=== PATIENT | female | born 1970 | race African-American/Black ===

== ENCOUNTER 2019-12-26 11:37 | Inpatient (IN) ==
[2019-12-26] MEDS ORDERED: GLUCAGON 1 MG VIAL IM PRN ×3 (17:27→19:34)
[2019-12-26] MEDS ORDERED: DEXTROSE 50% 25 GM/50 ML VIAL IV PRN ×3 (17:27→19:34)
[2019-12-26 20:19] LABS: Basophils % 0.2 % (0.0-0.8); Eosinophils # 0.2 10*3/uL (0.0-0.87); Eosinophils % 1.7 % (0.00-10.9); Hematocrit 35.2 VOL% (35.7-47.0); Hemoglobin 10.9 GM/DL (12.0-16.0); Immature Granulocytes % 0.3 %; Immature Granulocytes Absolute 0.03 #; Lymphocytes # 1.1 10*3/uL (1.4-4.0); Lymphocytes % 10.6 % (21.3-54.2); Mean Platelet Volume 10.1 FL (9.6-12.0); Monocytes % 6.1 % (1.7-12.7); Neutrophils % 81.1 % (38.7-73.9); Platelet Count 227 T/CUMM (130-400); Red Blood Count 3.63 MC/CUMM (3.8-5.5); Red Cell Distribution Width 17.7 % (9.3-17.3); White Blood Count 10.2 T/CUMM (4-12)
[2019-12-26 20:48] LABS: Albumin 3.1 G/DL (3.4-5.0); Bilirubin,Total 1.7 MG/DL (0.2-1.0); Calcium 9.2 MG/DL (8.5-10.1); Osmolality,Calculated 279.1 MOS/KG (273-304); Total Protein 8.3 G/DL (6.4-8.3)
[2019-12-26] MEDS: ONDANSETRON 4 MG/2 ML VIAL IV PRN (21:25)
[2019-12-26] MEDS: MORPHINE 4 MG/1 ML VIAL IV PRN (21:25)
[2019-12-26] MEDS: GABAPENTIN 100 MG CAPSULE PO SCH (21:33)
[2019-12-26] MEDS: INSULIN GLARGINE 100 UNIT/ML SUBCUT SCH (21:33)
[2019-12-26] MEDS: carvediloL 25 MG TABLET PO SCH (21:33)
[2019-12-26] MEDS: INSULIN LISPRO 100 UNIT/ML SUBCUT SCH (21:34)
[2019-12-27] MEDS: MORPHINE 4 MG/1 ML VIAL IV PRN ×4 (01:42→21:52)
[2019-12-27 06:54] LABS: Basophils % 0.2 % (0.0-0.8); Eosinophils # 0.2 10*3/uL (0.0-0.87); Eosinophils % 1.9 % (0.00-10.9); Hematocrit 33.3 VOL% (35.7-47.0); Hemoglobin 10.2 GM/DL (12.0-16.0); Immature Granulocytes % 0.2 %; Immature Granulocytes Absolute 0.02 #; Lymphocytes # 1.1 10*3/uL (1.4-4.0); Lymphocytes % 12.9 % (21.3-54.2); Mean Corpuscular HGB Conc 30.6 GM/DL (32-36); Mean Corpuscular Volume 99.1 FL (87-102); Mean Platelet Volume 10.7 FL (9.6-12.0); Neutrophils % 76.8 % (38.7-73.9); Platelet Count 239 T/CUMM (130-400); Red Blood Count 3.36 MC/CUMM (3.8-5.5); Red Cell Distribution Width 17.8 % (9.3-17.3); White Blood Count 8.5 T/CUMM (4-12)
[2019-12-27 07:01] LABS: Bilirubin,Total 0.6 MG/DL (0.2-1.0); Calcium 8.8 MG/DL (8.5-10.1); Osmolality,Calculated 277.1 MOS/KG (273-304); Total Protein 7.8 G/DL (6.4-8.3)
[2019-12-27] MEDS ORDERED: VANCOMYCIN INJ 1,000 MG in SODIUM CHLORIDE 0.9% 250 ML IV SCH (08:30)
[2019-12-27] MEDS: PANTOPRAZOLE 40 MG TABLET PO SCH (09:00)
[2019-12-27] MEDS: carvediloL 25 MG TABLET PO SCH ×2 (09:00→21:52)
[2019-12-27] MEDS: GABAPENTIN 100 MG CAPSULE PO SCH ×2 (09:00→21:52)
[2019-12-27] MEDS: INSULIN LISPRO 100 UNIT/ML SUBCUT SCH ×4 (09:25→21:52)
[2019-12-27] MEDS: ONDANSETRON 4 MG/2 ML VIAL IV PRN (10:14)
[2019-12-27] MEDS ORDERED: DOCUSATE SODIUM 100 MG CAPSULE PO PRN (10:41)
[2019-12-27] MEDS ORDERED: FERRIC CITRATE 210 MG PO SCH (15:00)
[2019-12-27] MEDS ORDERED: HEPARIN LOCK FLUSH 500 UNIT/5 ML SYRINGE IV PRN (16:23)
[2019-12-27] MEDS: PROMETHAZINE INJ 25 MG in SODIUM CHLORIDE 0.9% 50 ML IV PRN (18:39)
[2019-12-27] MEDS: INSULIN GLARGINE 100 UNIT/ML SUBCUT SCH (21:53)
[2019-12-27] MEDS: HEPARIN LOCK FLUSH 500 UNIT/5 ML SYRINGE IV SCH (21:54)
[2019-12-28] MEDS: MORPHINE 4 MG/1 ML VIAL IV PRN ×3 (05:44→23:35)
[2019-12-28] MEDS ORDERED: VANCOMYCIN INJ 1,750 MG in SODIUM CHLORIDE 0.9% 500 ML IV ONE (06:00)
[2019-12-28 08:12] LABS: Basophils % 0.4 % (0.0-0.8); Eosinophils # 0.2 10*3/uL (0.0-0.87); Eosinophils % 2.1 % (0.00-10.9); Hematocrit 35.7 VOL% (35.7-47.0); Hemoglobin 10.7 GM/DL (12.0-16.0); Immature Granulocytes % 0.4 %; Immature Granulocytes Absolute 0.03 #; Lymphocytes # 1.4 10*3/uL (1.4-4.0); Lymphocytes % 17.9 % (21.3-54.2); Mean Platelet Volume 10.4 FL (9.6-12.0); Monocytes % 8.8 % (1.7-12.7); Neutrophils % 70.4 % (38.7-73.9); Platelet Count 261 T/CUMM (130-400); Red Blood Count 3.57 MC/CUMM (3.8-5.5); Red Cell Distribution Width 17.4 % (9.3-17.3); White Blood Count 7.9 T/CUMM (4-12)
[2019-12-28 08:30] LABS: Albumin 3.2 G/DL (3.4-5.0); Bilirubin,Total 0.5 MG/DL (0.2-1.0); Calcium 9.2 MG/DL (8.5-10.1); Osmolality,Calculated 283.1 MOS/KG (273-304); Total Protein 8.1 G/DL (6.4-8.3)
[2019-12-28] MEDS ORDERED: CALCIUM GLUCONATE 2,000 MG in SODIUM CHLORIDE 0.9% 100 ML IV ONE (08:42)
[2019-12-28] MEDS ORDERED: DEXTROSE 50% 25 GM/50 ML VIAL IV ONE ×2 (08:43→13:43)
[2019-12-28] MEDS ORDERED: INSULIN REGULAR 100 UNIT/ML IV ONE (08:44)
[2019-12-28] MEDS ORDERED: LIDOCAINE 1%/EPI INJ 20 ML VIAL ONE ×2 (09:09→12:05)
[2019-12-28] MEDS ORDERED: BUPIVACAINE MPF 0.25% 30 ML VIAL ONE ×2 (09:09→12:05)
[2019-12-28] MEDS ORDERED: HEPARIN 5,000 UNIT/1 ML VIAL ONE ×2 (09:09→12:05)
[2019-12-28] MEDS: carvediloL 25 MG TABLET PO SCH ×2 (09:11→20:50)
[2019-12-28] MEDS: SODIUM CHLORIDE 0.9% 250 ML IV SCH ×2 (10:05→12:15)
[2019-12-28] MEDS: INSULIN LISPRO 100 UNIT/ML SUBCUT SCH ×4 (10:51→20:51)
[2019-12-28] MEDS ORDERED: LIDOCAINE 2% 5 ML VIAL ONE (12:49)
[2019-12-28] MEDS ORDERED: propofoL 200 MG/20 ML VIAL IV ONE (12:49)
[2019-12-28] MEDS ORDERED: fentaNYL 100 MCG/2 ML VIAL ONE (12:49)
[2019-12-28] MEDS ORDERED: SEVOFLURANE 1 UNIT/15 MINUTE INH ONE (12:50)
[2019-12-28] MEDS ORDERED: MIDAZOLAM 2 MG/2 ML VIAL ONE (12:50)
[2019-12-28] MEDS ORDERED: PHENYLEPHRINE 1 MG/10 ML SYRINGE IV ONE (12:50)
[2019-12-28] MEDS ORDERED: ePHEDrine 50 MG/ML AMP ONE (12:50)
[2019-12-28] MEDS: HEPARIN LOCK FLUSH 500 UNIT/5 ML SYRINGE IV SCH ×2 (14:03→22:16)
[2019-12-28] MEDS: OMEGA 3 ACID ETHYL ESTERS 1 GM CAPSULE PO SCH (14:03)
[2019-12-28] MEDS: PANTOPRAZOLE 40 MG TABLET PO SCH (14:04)
[2019-12-28] MEDS: GABAPENTIN 100 MG CAPSULE PO SCH ×2 (14:04→20:50)
[2019-12-28] MEDS ORDERED: DEXTROSE 50% 25 GM/50 ML VIAL IV PRN (14:07)
[2019-12-28] MEDS ORDERED: GLUCAGON 1 MG VIAL IM PRN (14:07)
[2019-12-28] MEDS ORDERED: VANCOMYCIN INJ 2,250 MG in SODIUM CHLORIDE 0.9% 500 ML IV ONE (18:00)
[2019-12-28] MEDS ORDERED: HEPARIN 10,000 UNIT/10 ML VIAL IV SCH (18:30)
[2019-12-28] MEDS: INSULIN GLARGINE 100 UNIT/ML SUBCUT SCH (20:52)
[2019-12-28] MEDS: PROMETHAZINE INJ 25 MG in SODIUM CHLORIDE 0.9% 50 ML IV PRN (21:56)
[2019-12-29] MEDS ORDERED: CALCIUM CARBONATE CHEW 500 MG TABLET PO ONE ×2 (00:11→22:28)
[2019-12-29] MEDS: MORPHINE 4 MG/1 ML VIAL IV PRN ×4 (03:55→22:50)
[2019-12-29 06:08] LABS: Basophils % 0.2 % (0.0-0.8); Eosinophils # 0.3 10*3/uL (0.0-0.87); Hematocrit 33.9 VOL% (35.7-47.0); Hemoglobin 10.2 GM/DL (12.0-16.0); Immature Granulocytes % 0.4 %; Immature Granulocytes Absolute 0.03 #; Lymphocytes # 1.5 10*3/uL (1.4-4.0); Lymphocytes % 17.5 % (21.3-54.2); Mean Corpuscular HGB Conc 30.1 GM/DL (32-36); Mean Corpuscular Volume 99.7 FL (87-102); Mean Platelet Volume 10.6 FL (9.6-12.0); Neutrophils % 71.9 % (38.7-73.9); Platelet Count 272 T/CUMM (130-400); Red Cell Distribution Width 17.2 % (9.3-17.3); White Blood Count 8.4 T/CUMM (4-12)
[2019-12-29 06:24] LABS: Bilirubin,Total 0.6 MG/DL (0.2-1.0); Calcium 9.2 MG/DL (8.5-10.1); Osmolality,Calculated 281.1 MOS/KG (273-304); Total Protein 7.8 G/DL (6.4-8.3)
[2019-12-29] MEDS ORDERED: VANCOMYCIN INJ 750 MG in SODIUM CHLORIDE 0.9% 250 ML IV ONE (09:00)
[2019-12-29] MEDS: INSULIN LISPRO 100 UNIT/ML SUBCUT SCH ×4 (09:16→21:46)
[2019-12-29] MEDS: HEPARIN LOCK FLUSH 500 UNIT/5 ML SYRINGE IV SCH ×2 (09:17→21:38)
[2019-12-29] MEDS: ONDANSETRON 4 MG/2 ML VIAL IV PRN (11:12)
[2019-12-29] MEDS: PANTOPRAZOLE 40 MG TABLET PO SCH (11:17)
[2019-12-29] MEDS: GABAPENTIN 100 MG CAPSULE PO SCH ×2 (11:17→21:38)
[2019-12-29] MEDS: OMEGA 3 ACID ETHYL ESTERS 1 GM CAPSULE PO SCH (11:17)
[2019-12-29] MEDS: carvediloL 25 MG TABLET PO SCH ×2 (11:17→21:38)
[2019-12-29] MEDS ORDERED: MORPHINE 4 MG/1 ML VIAL IV ONE (12:55)
[2019-12-29] MEDS ORDERED: ONDANSETRON 4 MG/2 ML VIAL IV ONE (12:55)
[2019-12-29] MEDS: INSULIN GLARGINE 100 UNIT/ML SUBCUT SCH (21:47)
[2019-12-30] MEDS: MORPHINE 4 MG/1 ML VIAL IV PRN ×5 (02:49→21:16)
[2019-12-30 06:04] LABS: Basophils % 0.6 % (0.0-0.8); Eosinophils # 0.3 10*3/uL (0.0-0.87); Eosinophils % 4.1 % (0.00-10.9); Hematocrit 32.4 VOL% (35.7-47.0); Hemoglobin 9.8 GM/DL (12.0-16.0); Immature Granulocytes % 0.6 %; Immature Granulocytes Absolute 0.04 #; Lymphocytes # 1.5 10*3/uL (1.4-4.0); Lymphocytes % 21.3 % (21.3-54.2); Mean Corpuscular HGB Conc 30.2 GM/DL (32-36); Mean Corpuscular Volume 99.4 FL (87-102); Mean Platelet Volume 10.4 FL (9.6-12.0); Monocytes % 9.7 % (1.7-12.7); Neutrophils % 63.7 % (38.7-73.9); Platelet Count 297 T/CUMM (130-400); Red Blood Count 3.26 MC/CUMM (3.8-5.5); Red Cell Distribution Width 16.9 % (9.3-17.3); White Blood Count 6.8 T/CUMM (4-12)
[2019-12-30 06:28] LABS: Albumin 2.7 G/DL (3.4-5.0); Bilirubin,Total 0.6 MG/DL (0.2-1.0); Calcium 8.9 MG/DL (8.5-10.1); Osmolality,Calculated 286.1 MOS/KG (273-304); Total Protein 7.7 G/DL (6.4-8.3)
[2019-12-30] MEDS ORDERED: ERGOCALCIFEROL 50,000 UNIT CAPSULE PO SCH (09:00)
[2019-12-30] MEDS: INSULIN LISPRO 100 UNIT/ML SUBCUT SCH ×4 (09:21→21:16)
[2019-12-30] MEDS ORDERED: CALCIUM CARBONATE CHEW 500 MG TABLET PO PRN (09:41)
[2019-12-30] MEDS: GABAPENTIN 100 MG CAPSULE PO SCH ×2 (12:56→20:26)
[2019-12-30] MEDS: PANTOPRAZOLE 40 MG TABLET PO SCH (12:57)
[2019-12-30] MEDS: carvediloL 25 MG TABLET PO SCH ×2 (12:57→20:26)
[2019-12-30] MEDS: OMEGA 3 ACID ETHYL ESTERS 1 GM CAPSULE PO SCH (12:57)
[2019-12-30] MEDS: ONDANSETRON 4 MG/2 ML VIAL IV PRN ×3 (13:00→21:17)
[2019-12-30] MEDS ORDERED: MORPHINE 4 MG/1 ML VIAL IV STA (13:52)
[2019-12-30] MEDS: HEPARIN LOCK FLUSH 500 UNIT/5 ML SYRINGE IV SCH ×2 (14:05→20:25)
[2019-12-30] MEDS ORDERED: VANCOMYCIN INJ 750 MG in SODIUM CHLORIDE 0.9% 250 ML IV ONE (17:00)
[2019-12-30] MEDS ORDERED: VANCOMYCIN INJ 750 MG in SODIUM CHLORIDE 0.9% 250 ML IV PRN (18:00)
[2019-12-30] MEDS: INSULIN GLARGINE 100 UNIT/ML SUBCUT SCH (20:25)
[2019-12-31] MEDS: MORPHINE 4 MG/1 ML VIAL IV PRN ×3 (00:53→08:17)
[2019-12-31 06:14] LABS: Basophils % 0.4 % (0.0-0.8); Eosinophils # 0.3 10*3/uL (0.0-0.87); Hemoglobin 10.2 GM/DL (12.0-16.0); Immature Granulocytes % 0.4 %; Immature Granulocytes Absolute 0.03 #; Lymphocytes # 1.4 10*3/uL (1.4-4.0); Lymphocytes % 20.4 % (21.3-54.2); Mean Corpuscular Volume 100.3 FL (87-102); Mean Platelet Volume 10.2 FL (9.6-12.0); Neutrophils % 67.8 % (38.7-73.9); Platelet Count 294 T/CUMM (130-400); Red Blood Count 3.39 MC/CUMM (3.8-5.5); Red Cell Distribution Width 16.9 % (9.3-17.3); White Blood Count 6.8 T/CUMM (4-12)
[2019-12-31] MEDS: INSULIN LISPRO 100 UNIT/ML SUBCUT SCH (06:35)
[2019-12-31 06:39] LABS: Albumin 2.6 G/DL (3.4-5.0); Bilirubin,Total 0.8 MG/DL (0.2-1.0); Calcium 9.2 MG/DL (8.5-10.1); Osmolality,Calculated 282.2 MOS/KG (273-304); Total Protein 7.7 G/DL (6.4-8.3)
[2019-12-31] MEDS ORDERED: SODIUM POLYSTYRENE SULFATE 15 GM/60 ML BOTTLE PO ONE (07:50)
[2019-12-31] MEDS: ONDANSETRON 4 MG/2 ML VIAL IV PRN (08:18)
[2019-12-31] MEDS: HEPARIN LOCK FLUSH 500 UNIT/5 ML SYRINGE IV SCH (08:20)
[2019-12-31] MEDS: GABAPENTIN 100 MG CAPSULE PO SCH (08:29)
[2019-12-31] MEDS: OMEGA 3 ACID ETHYL ESTERS 1 GM CAPSULE PO SCH (08:29)
[2019-12-31] MEDS: PANTOPRAZOLE 40 MG TABLET PO SCH (08:29)
[2019-12-31] MEDS: carvediloL 25 MG TABLET PO SCH (08:29)
[2019-12-31 08:40] VITALS: BP 123/62
== END 2019-12-31 10:34 | disposition home health service (06) | DRG 252 ==
LOC: N.3E 14:50 → SUATTDRO 14:50
PROVIDERS: ADMIT Internal Medicine; ATTEND Internal Medicine
PROC: VAVDCFI (2019-12-28 10:06)

== ENCOUNTER 2020-01-19 22:13 | Inpatient (IN) ==
[2020-01-20] MEDS ORDERED: DEXTROSE 10% 250 ML BAG IV PRN (00:06)
[2020-01-20] MEDS ORDERED: GLUCAGON 1 MG VIAL IM PRN (00:06)
[2020-01-20] MEDS: CLORAZEPATE 7.5 MG TABLET PO PRN ×4 (01:50→22:54)
[2020-01-20] MEDS: metroNIDAZOLE INJ 500 MG in PREMIX 1 EACH IV SCH ×2 (01:51→06:20)
[2020-01-20] MEDS: INSULIN REGULAR 100 UNIT/ML SUBCUT SCH ×5 (02:01→21:01)
[2020-01-20] MEDS ORDERED: VANCOMYCIN INJ 750 MG in SODIUM CHLORIDE 0.9% 250 ML IV PRN (02:34)
[2020-01-20] MEDS ORDERED: GENTAMICIN INJ 200 MG in SODIUM CHLORIDE 0.9% 100 ML IV PRN (02:38)
[2020-01-20] MEDS: hydrALAZINE 20 MG/1 ML VIAL IV PRN ×2 (03:53→12:50)
[2020-01-20 07:56] LABS: Basophils % 0.1 % (0.0-0.8); Hematocrit 36.6 VOL% (35.7-47.0); Hemoglobin 11.1 GM/DL (12.0-16.0); Immature Granulocytes % 1.2 %; Immature Granulocytes Absolute 0.12 #; Lymphocytes # 0.8 10*3/uL (1.4-4.0); Mean Corpuscular HGB Conc 30.3 GM/DL (32-36); Mean Corpuscular Volume 99.2 FL (87-102); Mean Platelet Volume 9.6 FL (9.6-12.0); Monocytes % 4.9 % (1.7-12.7); Neutrophils % 85.8 % (38.7-73.9); Platelet Count 205 T/CUMM (130-400); Red Blood Count 3.69 MC/CUMM (3.8-5.5); Red Cell Distribution Width 17.2 % (9.3-17.3); White Blood Count 10.1 T/CUMM (4-12)
[2020-01-20] MEDS ORDERED: LEVOFLOXACIN INJ 500 MG in PREMIX 1 EACH IV ONE (08:00)
[2020-01-20 08:49] LABS: Bilirubin,Total 0.9 MG/DL (0.2-1.0); Calcium 9.9 MG/DL (8.5-10.1); Total Protein 9.3 G/DL (6.4-8.3)
[2020-01-20 08:50] LABS: Albumin 3.6 G/DL (3.4-5.0); Osmolality,Calculated 288.7 MOS/KG (273-304)
[2020-01-20] MEDS: GABAPENTIN 100 MG CAPSULE PO SCH ×2 (08:51→21:11)
[2020-01-20] MEDS: carvediloL 25 MG TABLET PO SCH ×2 (08:52→21:11)
[2020-01-20] MEDS: ONDANSETRON 4 MG/2 ML VIAL IV PRN ×2 (08:52→19:50)
[2020-01-20] MEDS: PANTOPRAZOLE 40 MG TABLET PO SCH (08:52)
[2020-01-20] MEDS: OMEGA 3 ACID ETHYL ESTERS 1 GM CAPSULE PO SCH (09:08)
[2020-01-20] MEDS ORDERED: GENTAMICIN INJ 100 MG in PREMIX 1 EACH IV PRN (10:13)
[2020-01-20] MEDS ORDERED: VANCOMYCIN INJ 1,000 MG in SODIUM CHLORIDE 0.9% 250 ML IV PRN (10:14)
[2020-01-20] MEDS: VANCOMYCIN 50 MG/ML 60 ML/BOTTLE PO SCH ×3 (13:03→23:45)
[2020-01-20] MEDS ORDERED: HEPARIN 10,000 UNIT/10 ML VIAL IV PRN (15:26)
[2020-01-20] MEDS: PROMETHAZINE 25 MG/1 ML VIAL IM PRN ×2 (15:30→20:13)
[2020-01-20] MEDS ORDERED: GENTAMICIN INJ 100 MG in PREMIX 1 EACH IV ONE (17:00)
[2020-01-20] MEDS ORDERED: VANCOMYCIN INJ 1,000 MG in SODIUM CHLORIDE 0.9% 250 ML IV ONE (17:00)
[2020-01-20] MEDS: ACETAMINOPHEN/CODEINE 300-30 MG TABLET PO PRN (20:09)
[2020-01-20] MEDS: INSULIN GLARGINE 100 UNIT/ML SUBCUT SCH (21:11)
[2020-01-21] MEDS ORDERED: SCOPOLAMINE 1.5 MG PATCH TRANSDERM ONE (00:11)
[2020-01-21] MEDS: VANCOMYCIN 50 MG/ML 60 ML/BOTTLE PO SCH ×3 (06:32→18:20)
[2020-01-21] MEDS: ACETAMINOPHEN/CODEINE 300-30 MG TABLET PO PRN ×2 (07:38→13:42)
[2020-01-21] MEDS: PROMETHAZINE 25 MG/1 ML VIAL IM PRN ×3 (07:38→20:24)
[2020-01-21] MEDS: carvediloL 25 MG TABLET PO SCH ×2 (08:54→22:20)
[2020-01-21] MEDS: PANTOPRAZOLE 40 MG TABLET PO SCH (08:54)
[2020-01-21] MEDS: OMEGA 3 ACID ETHYL ESTERS 1 GM CAPSULE PO SCH (08:54)
[2020-01-21] MEDS: INSULIN REGULAR 100 UNIT/ML SUBCUT SCH ×4 (08:54→22:24)
[2020-01-21] MEDS: GABAPENTIN 100 MG CAPSULE PO SCH ×2 (08:54→22:20)
[2020-01-21] MEDS: HEPARIN 5,000 UNIT/1 ML VIAL SUBCUT SCH ×2 (11:43→22:45)
[2020-01-21] MEDS: ONDANSETRON 4 MG/2 ML VIAL IV PRN ×2 (12:20→18:21)
[2020-01-21] MEDS: LACTOBACILLUS ACIDOPHILUS/BULGARICUS CHEW TABLET PO SCH ×2 (12:49→22:45)
[2020-01-21] MEDS: CLORAZEPATE 7.5 MG TABLET PO PRN (18:21)
[2020-01-21] MEDS: ACETAMINOPHEN 325 MG TABLET PO PRN (18:21)
[2020-01-21] MEDS: INSULIN GLARGINE 100 UNIT/ML SUBCUT SCH (22:21)
[2020-01-21] MEDS: SCOPOLAMINE 1.5 MG PATCH TRANSDERM SCH (22:45)
[2020-01-22] MEDS: VANCOMYCIN 50 MG/ML 60 ML/BOTTLE PO SCH ×5 (01:20→23:26)
[2020-01-22] MEDS: CLORAZEPATE 7.5 MG TABLET PO PRN ×2 (04:30→16:58)
[2020-01-22] MEDS: ACETAMINOPHEN/CODEINE 300-30 MG TABLET PO PRN ×2 (04:30→11:40)
[2020-01-22] MEDS ORDERED: LEVOFLOXACIN INJ 250 MG in PREMIX 1 EACH IV SCH (08:00)
[2020-01-22] MEDS: INSULIN REGULAR 100 UNIT/ML SUBCUT SCH ×4 (08:23→21:16)
[2020-01-22] MEDS: GABAPENTIN 100 MG CAPSULE PO SCH ×2 (09:18→21:16)
[2020-01-22] MEDS: OMEGA 3 ACID ETHYL ESTERS 1 GM CAPSULE PO SCH (09:18)
[2020-01-22] MEDS: LACTOBACILLUS ACIDOPHILUS/BULGARICUS CHEW TABLET PO SCH ×2 (09:18→21:16)
[2020-01-22] MEDS: PANTOPRAZOLE 40 MG TABLET PO SCH (09:19)
[2020-01-22] MEDS: carvediloL 25 MG TABLET PO SCH ×2 (09:19→21:16)
[2020-01-22] MEDS: PROMETHAZINE 25 MG/1 ML VIAL IM PRN ×3 (09:22→22:44)
[2020-01-22] MEDS: HEPARIN 5,000 UNIT/1 ML VIAL SUBCUT SCH ×2 (11:45→22:44)
[2020-01-22] MEDS: INSULIN GLARGINE 100 UNIT/ML SUBCUT SCH (21:16)
[2020-01-22] MEDS: ONDANSETRON 4 MG/2 ML VIAL IV PRN (21:17)
[2020-01-23] MEDS: PROMETHAZINE 25 MG/1 ML VIAL IM PRN ×3 (04:51→18:28)
[2020-01-23] MEDS: ACETAMINOPHEN/CODEINE 300-30 MG TABLET PO PRN ×2 (04:52→21:27)
[2020-01-23] MEDS: VANCOMYCIN 50 MG/ML 60 ML/BOTTLE PO SCH ×3 (06:06→18:07)
[2020-01-23] MEDS: INSULIN REGULAR 100 UNIT/ML SUBCUT SCH ×4 (07:30→21:23)
[2020-01-23] MEDS: carvediloL 25 MG TABLET PO SCH ×2 (08:06→21:22)
[2020-01-23] MEDS: ONDANSETRON 4 MG/2 ML VIAL IV PRN ×2 (08:06→16:30)
[2020-01-23] MEDS: PANTOPRAZOLE 40 MG TABLET PO SCH (08:06)
[2020-01-23] MEDS: GABAPENTIN 100 MG CAPSULE PO SCH ×2 (08:06→21:22)
[2020-01-23] MEDS: OMEGA 3 ACID ETHYL ESTERS 1 GM CAPSULE PO SCH (08:06)
[2020-01-23] MEDS: LACTOBACILLUS ACIDOPHILUS/BULGARICUS CHEW TABLET PO SCH ×2 (10:08→21:22)
[2020-01-23] MEDS: HEPARIN 5,000 UNIT/1 ML VIAL SUBCUT SCH ×2 (14:41→22:37)
[2020-01-23] MEDS ORDERED: GENTAMICIN INJ 100 MG in PREMIX 1 EACH IV ONE (17:00)
[2020-01-23] MEDS ORDERED: VANCOMYCIN INJ 1,000 MG in SODIUM CHLORIDE 0.9% 250 ML IV ONE (18:00)
[2020-01-23] MEDS: CLORAZEPATE 7.5 MG TABLET PO PRN (21:22)
[2020-01-23] MEDS: INSULIN GLARGINE 100 UNIT/ML SUBCUT SCH (21:23)
[2020-01-24] MEDS: VANCOMYCIN 50 MG/ML 60 ML/BOTTLE PO SCH ×4 (01:25→17:08)
[2020-01-24 05:43] LABS: Basophils % 0.4 % (0.0-0.8); Eosinophils # 0.5 10*3/uL (0.0-0.87); Eosinophils % 7.1 % (0.00-10.9); Hematocrit 34.3 VOL% (35.7-47.0); Hemoglobin 10.1 GM/DL (12.0-16.0); Immature Granulocytes % 0.3 %; Immature Granulocytes Absolute 0.02 #; Lymphocytes # 1.8 10*3/uL (1.4-4.0); Lymphocytes % 24.7 % (21.3-54.2); Mean Corpuscular HGB Conc 29.4 GM/DL (32-36); Mean Corpuscular Volume 100.9 FL (87-102); Mean Platelet Volume 10.2 FL (9.6-12.0); Monocytes % 9.2 % (1.7-12.7); Neutrophils % 58.3 % (38.7-73.9); Platelet Count 250 T/CUMM (130-400); Red Cell Distribution Width 16.4 % (9.3-17.3); White Blood Count 7.3 T/CUMM (4-12)
[2020-01-24 06:00] LABS: Calcium 8.3 MG/DL (8.5-10.1); Osmolality,Calculated 277.2 MOS/KG (273-304)
[2020-01-24] MEDS: INSULIN REGULAR 100 UNIT/ML SUBCUT SCH ×4 (07:51→21:22)
[2020-01-24] MEDS: SODIUM CHLORIDE 0.9% 1,000 ML IV SCH (08:07)
[2020-01-24] MEDS: SCOPOLAMINE 1.5 MG PATCH TRANSDERM SCH (08:07)
[2020-01-24] MEDS: ONDANSETRON 4 MG/2 ML VIAL IV PRN ×2 (08:08→18:55)
[2020-01-24] MEDS: carvediloL 25 MG TABLET PO SCH ×2 (08:58→21:21)
[2020-01-24] MEDS: OMEGA 3 ACID ETHYL ESTERS 1 GM CAPSULE PO SCH (08:58)
[2020-01-24] MEDS: LACTOBACILLUS ACIDOPHILUS/BULGARICUS CHEW TABLET PO SCH ×2 (08:58→21:22)
[2020-01-24] MEDS: PANTOPRAZOLE 40 MG TABLET PO SCH (08:59)
[2020-01-24] MEDS: GABAPENTIN 100 MG CAPSULE PO SCH ×2 (08:59→21:21)
[2020-01-24] MEDS: PROMETHAZINE 25 MG/1 ML VIAL IM PRN ×2 (13:16→21:24)
[2020-01-24] MEDS: ACETAMINOPHEN/CODEINE 300-30 MG TABLET PO PRN (18:37)
[2020-01-24] MEDS: INSULIN GLARGINE 100 UNIT/ML SUBCUT SCH (21:24)
[2020-01-25] MEDS: VANCOMYCIN 50 MG/ML 60 ML/BOTTLE PO SCH ×4 (00:20→18:08)
[2020-01-25] MEDS: PROMETHAZINE 25 MG/1 ML VIAL IM PRN ×2 (08:34→15:01)
[2020-01-25] MEDS: GABAPENTIN 100 MG CAPSULE PO SCH ×2 (11:06→21:27)
[2020-01-25] MEDS: OMEGA 3 ACID ETHYL ESTERS 1 GM CAPSULE PO SCH (11:06)
[2020-01-25] MEDS: PANTOPRAZOLE 40 MG TABLET PO SCH (11:06)
[2020-01-25] MEDS: INSULIN REGULAR 100 UNIT/ML SUBCUT SCH ×4 (11:07→21:43)
[2020-01-25] MEDS: carvediloL 25 MG TABLET PO SCH ×2 (11:07→21:27)
[2020-01-25] MEDS: LACTOBACILLUS ACIDOPHILUS/BULGARICUS CHEW TABLET PO SCH ×2 (11:09→21:27)
[2020-01-25] MEDS: SODIUM CHLORIDE 0.9% 1,000 ML IV SCH (15:00)
[2020-01-25] MEDS: ACETAMINOPHEN/CODEINE 300-30 MG TABLET PO PRN (16:47)
[2020-01-25] MEDS ORDERED: VANCOMYCIN INJ 1,000 MG in SODIUM CHLORIDE 0.9% 250 ML IV ONE (17:00)
[2020-01-25] MEDS ORDERED: GENTAMICIN INJ 100 MG in PREMIX 1 EACH IV ONE (17:00)
[2020-01-25] MEDS: ALUMINUM/MAGNES/SIMETH MAX STR 30 ML UDCUP PO PRN (21:26)
[2020-01-25] MEDS: INSULIN GLARGINE 100 UNIT/ML SUBCUT SCH (21:28)
[2020-01-26] MEDS: VANCOMYCIN 50 MG/ML 60 ML/BOTTLE PO SCH ×4 (00:15→17:10)
[2020-01-26] MEDS: PROMETHAZINE 25 MG/1 ML VIAL IM PRN ×2 (08:47→19:36)
[2020-01-26] MEDS ORDERED: propofoL 200 MG/20 ML VIAL IV ONE (09:00)
[2020-01-26] MEDS: GABAPENTIN 100 MG CAPSULE PO SCH ×2 (09:00→20:23)
[2020-01-26] MEDS: LACTOBACILLUS ACIDOPHILUS/BULGARICUS CHEW TABLET PO SCH ×2 (09:00→20:23)
[2020-01-26] MEDS ORDERED: ETOMIDATE 20 MG/10 ML VIAL IV ONE (09:00)
[2020-01-26] MEDS: carvediloL 25 MG TABLET PO SCH ×2 (09:00→20:23)
[2020-01-26] MEDS ORDERED: LIDOCAINE 2% 5 ML VIAL ONE (09:00)
[2020-01-26] MEDS ORDERED: PHENYLEPHRINE 1 MG/10 ML SYRINGE IV ONE (09:00)
[2020-01-26] MEDS: SODIUM CHLORIDE 0.9% 500 ML IV SCH (11:04)
[2020-01-26] MEDS ORDERED: FLUCONAZOLE 200 MG TABLET PO ONE (11:51)
[2020-01-26] MEDS: INSULIN REGULAR 100 UNIT/ML SUBCUT SCH ×3 (14:58→20:15)
[2020-01-26] MEDS: SODIUM CHLORIDE 0.9% 1,000 ML IV SCH (14:58)
[2020-01-26] MEDS ORDERED: VANCOMYCIN INJ 1,000 MG in SODIUM CHLORIDE 0.9% 250 ML IV ONE (17:00)
[2020-01-26] MEDS ORDERED: GENTAMICIN INJ 100 MG in PREMIX 1 EACH IV ONE (17:00)
[2020-01-26] MEDS: PANTOPRAZOLE 40 MG TABLET PO SCH (17:30)
[2020-01-26] MEDS: OMEGA 3 ACID ETHYL ESTERS 1 GM CAPSULE PO SCH (17:30)
[2020-01-26] MEDS: INSULIN GLARGINE 100 UNIT/ML SUBCUT SCH (20:16)
[2020-01-26] MEDS: CLORAZEPATE 7.5 MG TABLET PO PRN (20:23)
[2020-01-27] MEDS: VANCOMYCIN 50 MG/ML 60 ML/BOTTLE PO SCH ×5 (00:31→23:33)
[2020-01-27] MEDS: PROMETHAZINE 25 MG/1 ML VIAL IM PRN ×4 (05:22→23:27)
[2020-01-27] MEDS: ACETAMINOPHEN/CODEINE 300-30 MG TABLET PO PRN ×3 (05:22→20:52)
[2020-01-27] MEDS: SODIUM CHLORIDE 0.9% 1,000 ML IV SCH (08:28)
[2020-01-27] MEDS: INSULIN REGULAR 100 UNIT/ML SUBCUT SCH ×4 (08:28→21:20)
[2020-01-27] MEDS: SODIUM CHLORIDE 0.9% 500 ML IV SCH (10:13)
[2020-01-27] MEDS: LACTOBACILLUS ACIDOPHILUS/BULGARICUS CHEW TABLET PO SCH ×2 (12:58→20:51)
[2020-01-27] MEDS: PANTOPRAZOLE 40 MG TABLET PO SCH (13:00)
[2020-01-27] MEDS: OMEGA 3 ACID ETHYL ESTERS 1 GM CAPSULE PO SCH (13:00)
[2020-01-27] MEDS: GABAPENTIN 100 MG CAPSULE PO SCH ×2 (13:00→20:51)
[2020-01-27] MEDS: carvediloL 25 MG TABLET PO SCH ×2 (13:01→20:51)
[2020-01-27] MEDS: FLUCONAZOLE 100 MG TABLET PO SCH (13:01)
[2020-01-27] MEDS: SCOPOLAMINE 1.5 MG PATCH TRANSDERM SCH (13:02)
[2020-01-27] MEDS: ALUMINUM/MAGNES/SIMETH MAX STR 30 ML UDCUP PO PRN (15:49)
[2020-01-27] MEDS: ONDANSETRON 4 MG/2 ML VIAL IV PRN (20:55)
[2020-01-27] MEDS: CLORAZEPATE 7.5 MG TABLET PO PRN (20:58)
[2020-01-27] MEDS: INSULIN GLARGINE 100 UNIT/ML SUBCUT SCH (21:20)
[2020-01-28] MEDS: VANCOMYCIN 50 MG/ML 60 ML/BOTTLE PO SCH ×3 (05:57→18:19)
[2020-01-28] MEDS: PROMETHAZINE 25 MG/1 ML VIAL IM PRN ×3 (06:01→21:02)
[2020-01-28] MEDS: INSULIN REGULAR 100 UNIT/ML SUBCUT SCH ×4 (08:51→21:09)
[2020-01-28] MEDS: carvediloL 25 MG TABLET PO SCH ×2 (08:54→21:01)
[2020-01-28] MEDS: OMEGA 3 ACID ETHYL ESTERS 1 GM CAPSULE PO SCH ×2 (08:54→12:19)
[2020-01-28] MEDS: LACTOBACILLUS ACIDOPHILUS/BULGARICUS CHEW TABLET PO SCH ×3 (08:54→21:01)
[2020-01-28] MEDS: FLUCONAZOLE 100 MG TABLET PO SCH ×2 (08:54→12:19)
[2020-01-28] MEDS: PANTOPRAZOLE 40 MG TABLET PO SCH ×2 (08:55→12:19)
[2020-01-28] MEDS: GABAPENTIN 100 MG CAPSULE PO SCH ×3 (08:55→21:01)
[2020-01-28] MEDS ORDERED: VANCOMYCIN INJ 1,000 MG in SODIUM CHLORIDE 0.9% 250 ML IV PRN (16:18)
[2020-01-28] MEDS ORDERED: GENTAMICIN INJ 100 MG in PREMIX 1 EACH IV PRN (16:18)
[2020-01-28] MEDS ORDERED: VANCOMYCIN INJ 1,000 MG in SODIUM CHLORIDE 0.9% 250 ML IV ONE (18:00)
[2020-01-28] MEDS: METOCLOPRAMIDE 10 MG/2 ML VIAL IV SCH (18:18)
[2020-01-28] MEDS ORDERED: GENTAMICIN INJ 100 MG in PREMIX 1 EACH IV ONE (20:00)
[2020-01-28] MEDS: CLORAZEPATE 7.5 MG TABLET PO PRN (21:01)
[2020-01-28] MEDS: INSULIN GLARGINE 100 UNIT/ML SUBCUT SCH (21:09)
[2020-01-29] MEDS: METOCLOPRAMIDE 10 MG/2 ML VIAL IV SCH ×4 (00:17→17:42)
[2020-01-29] MEDS: VANCOMYCIN 50 MG/ML 60 ML/BOTTLE PO SCH ×4 (00:17→17:43)
[2020-01-29 05:56] LABS: Basophils % 0.5 % (0.0-0.8); Eosinophils # 0.4 10*3/uL (0.0-0.87); Eosinophils % 6.8 % (0.00-10.9); Hematocrit 31.5 VOL% (35.7-47.0); Hemoglobin 9.5 GM/DL (12.0-16.0); Immature Granulocytes % 0.4 %; Immature Granulocytes Absolute 0.02 #; Lymphocytes # 0.9 10*3/uL (1.4-4.0); Lymphocytes % 15.5 % (21.3-54.2); Mean Corpuscular HGB Conc 30.2 GM/DL (32-36); Mean Corpuscular Volume 99.1 FL (87-102); Mean Platelet Volume 10.3 FL (9.6-12.0); Monocytes % 11.6 % (1.7-12.7); Neutrophils % 65.2 % (38.7-73.9); Platelet Count 271 T/CUMM (130-400); Red Blood Count 3.18 MC/CUMM (3.8-5.5); Red Cell Distribution Width 15.3 % (9.3-17.3); White Blood Count 5.6 T/CUMM (4-12)
[2020-01-29 05:59] LABS: Calcium 8.4 MG/DL (8.5-10.1); Osmolality,Calculated 269.2 MOS/KG (273-304)
[2020-01-29] MEDS: INSULIN REGULAR 100 UNIT/ML SUBCUT SCH ×4 (08:39→21:29)
[2020-01-29] MEDS: carvediloL 25 MG TABLET PO SCH ×2 (08:42→21:31)
[2020-01-29] MEDS: LACTOBACILLUS ACIDOPHILUS/BULGARICUS CHEW TABLET PO SCH ×2 (08:42→21:30)
[2020-01-29] MEDS: GABAPENTIN 100 MG CAPSULE PO SCH ×2 (08:42→21:30)
[2020-01-29] MEDS: PANTOPRAZOLE 40 MG TABLET PO SCH (08:42)
[2020-01-29] MEDS: OMEGA 3 ACID ETHYL ESTERS 1 GM CAPSULE PO SCH (08:42)
[2020-01-29] MEDS: FLUCONAZOLE 100 MG TABLET PO SCH (08:43)
[2020-01-29] MEDS: PROMETHAZINE 25 MG/1 ML VIAL IM PRN ×3 (08:46→21:29)
[2020-01-29] MEDS: ACETAMINOPHEN/CODEINE 300-30 MG TABLET PO PRN (20:26)
[2020-01-29] MEDS: INSULIN GLARGINE 100 UNIT/ML SUBCUT SCH (21:29)
[2020-01-29] MEDS: CLORAZEPATE 7.5 MG TABLET PO PRN (21:31)
[2020-01-30] MEDS: METOCLOPRAMIDE 10 MG/2 ML VIAL IV SCH ×2 (00:50→06:03)
[2020-01-30] MEDS: VANCOMYCIN 50 MG/ML 60 ML/BOTTLE PO SCH ×4 (00:50→17:53)
[2020-01-30 06:28] LABS: Basophils % 0.7 % (0.0-0.8); Eosinophils # 0.3 10*3/uL (0.0-0.87); Eosinophils % 5.6 % (0.00-10.9); Hematocrit 32.3 VOL% (35.7-47.0); Hemoglobin 9.8 GM/DL (12.0-16.0); Immature Granulocytes % 0.3 %; Immature Granulocytes Absolute 0.02 #; Lymphocytes # 1.1 10*3/uL (1.4-4.0); Mean Corpuscular HGB Conc 30.3 GM/DL (32-36); Mean Corpuscular Volume 99.7 FL (87-102); Mean Platelet Volume 10.1 FL (9.6-12.0); Monocytes % 11.7 % (1.7-12.7); Neutrophils % 63.7 % (38.7-73.9); Platelet Count 295 T/CUMM (130-400); Red Blood Count 3.24 MC/CUMM (3.8-5.5); Red Cell Distribution Width 15.4 % (9.3-17.3); White Blood Count 6.1 T/CUMM (4-12)
[2020-01-30 06:44] LABS: Calcium 8.6 MG/DL (8.5-10.1); Osmolality,Calculated 267.5 MOS/KG (273-304)
[2020-01-30] MEDS: ACETAMINOPHEN/CODEINE 300-30 MG TABLET PO PRN ×2 (07:44→22:01)
[2020-01-30] MEDS: PROMETHAZINE 25 MG/1 ML VIAL IM PRN ×3 (07:44→22:00)
[2020-01-30] MEDS: INSULIN REGULAR 100 UNIT/ML SUBCUT SCH ×4 (08:02→22:02)
[2020-01-30] MEDS: PANTOPRAZOLE 40 MG TABLET PO SCH (09:22)
[2020-01-30] MEDS: FLUCONAZOLE 100 MG TABLET PO SCH (09:22)
[2020-01-30] MEDS: GABAPENTIN 100 MG CAPSULE PO SCH ×2 (09:22→22:02)
[2020-01-30] MEDS: carvediloL 25 MG TABLET PO SCH ×2 (09:22→22:02)
[2020-01-30] MEDS: OMEGA 3 ACID ETHYL ESTERS 1 GM CAPSULE PO SCH (09:22)
[2020-01-30] MEDS: LACTOBACILLUS ACIDOPHILUS/BULGARICUS CHEW TABLET PO SCH ×2 (09:26→22:04)
[2020-01-30] MEDS: SCOPOLAMINE 1.5 MG PATCH TRANSDERM SCH (09:29)
[2020-01-30] MEDS: METOCLOPRAMIDE 5 MG TABLET PO SCH ×2 (12:50→17:54)
[2020-01-30] MEDS: ACETAMINOPHEN 325 MG TABLET PO PRN (17:27)
[2020-01-30] MEDS: ONDANSETRON 4 MG/2 ML VIAL IV PRN (18:30)
[2020-01-30] MEDS: INSULIN GLARGINE 100 UNIT/ML SUBCUT SCH (22:01)
[2020-01-30] MEDS: CLORAZEPATE 7.5 MG TABLET PO PRN (22:01)
[2020-01-31] MEDS: METOCLOPRAMIDE 5 MG TABLET PO SCH ×4 (00:59→18:17)
[2020-01-31] MEDS: ALUMINUM/MAGNES/SIMETH MAX STR 30 ML UDCUP PO PRN (05:35)
[2020-01-31] MEDS: INSULIN REGULAR 100 UNIT/ML SUBCUT SCH ×3 (07:38→16:53)
[2020-01-31] MEDS: PROMETHAZINE 25 MG/1 ML VIAL IM PRN (08:04)
[2020-01-31 08:06] LABS: Calcium 8.2 MG/DL (8.5-10.1); Osmolality,Calculated 272.1 MOS/KG (273-304)
[2020-01-31] MEDS: LACTOBACILLUS ACIDOPHILUS/BULGARICUS CHEW TABLET PO SCH (13:04)
[2020-01-31] MEDS: FLUCONAZOLE 100 MG TABLET PO SCH (13:06)
[2020-01-31] MEDS: carvediloL 25 MG TABLET PO SCH (13:06)
[2020-01-31] MEDS: OMEGA 3 ACID ETHYL ESTERS 1 GM CAPSULE PO SCH (13:06)
[2020-01-31] MEDS: PANTOPRAZOLE 40 MG TABLET PO SCH (13:07)
[2020-01-31] MEDS: GABAPENTIN 100 MG CAPSULE PO SCH (13:07)
[2020-01-31 13:54] VITALS: BP 107/55
[2020-01-31] MEDS ORDERED: GENTAMICIN INJ 100 MG in PREMIX 1 EACH IV ONE (17:00)
[2020-01-31] MEDS ORDERED: VANCOMYCIN INJ 1,000 MG in SODIUM CHLORIDE 0.9% 250 ML IV ONE (17:00)
[2020-01-31 18:36] LABS: CDT Result Negative (Negative); CDT Specimen Source STOOL
== END 2020-01-31 20:25 | disposition home or self-care (01) | DRG 73 ==
LOC: N.TELEN → OBSVTOIN 23:35 → SUATTDRO 23:35
PROVIDERS: ADMIT Internal Medicine; ATTEND Internal Medicine

== ENCOUNTER 2020-02-01 18:36 | Inpatient (IN) ==
[2020-02-01] MEDS ORDERED: AZITHROMYCIN INJ 500 MG in SODIUM CHLORIDE 0.9% 250 ML IV STA (20:02)
[2020-02-01 20:09] LABS: Basophils % 0.2 % (0.0-0.8); Eosinophils # 0.1 10*3/uL (0.0-0.87); Eosinophils % 0.7 % (0.00-10.9); Hematocrit 31.7 VOL% (35.7-47.0); Hemoglobin 9.6 GM/DL (12.0-16.0); Immature Granulocytes % 0.5 %; Immature Granulocytes Absolute 0.07 #; Lymphocytes # 1.1 10*3/uL (1.4-4.0); Lymphocytes % 7.4 % (21.3-54.2); Mean Corpuscular HGB Conc 30.3 GM/DL (32-36); Mean Platelet Volume 10.1 FL (9.6-12.0); Monocytes % 5.9 % (1.7-12.7); Neutrophils % 85.3 % (38.7-73.9); Platelet Count 242 T/CUMM (130-400); Red Blood Count 3.17 MC/CUMM (3.8-5.5); Red Cell Distribution Width 15.2 % (9.3-17.3)
[2020-02-01 20:30] LABS: Albumin 2.8 G/DL (3.4-5.0); Bilirubin,Total 0.4 MG/DL (0.2-1.0); Calcium 8.6 MG/DL (8.5-10.1); Ferritin 1461.5 ng/ml (8-252); Osmolality,Calculated 271.2 MOS/KG (273-304); Total Protein 7.7 G/DL (6.4-8.3)
[2020-02-02] MEDS ORDERED: GENTAMICIN IV PRN (00:55)
[2020-02-02] MEDS ORDERED: DOCUSATE SODIUM 100 MG CAPSULE PO PRN (00:55)
[2020-02-02] MEDS ORDERED: DEXTROSE 10% 250 ML BAG IV PRN (00:55)
[2020-02-02] MEDS ORDERED: GLUCAGON 1 MG VIAL IM PRN (00:55)
[2020-02-02] MEDS ORDERED: VANCOMYCIN 1,000 MG VIAL IV PRN (00:55)
[2020-02-02] MEDS ORDERED: AZTREONAM 2,000 MG in SODIUM CHLORIDE 0.9% 100 ML IV SCH (02:00)
[2020-02-02] MEDS ORDERED: LEVOFLOXACIN INJ 750 MG in PREMIX 1 EACH IV ONE (02:00)
[2020-02-02] MEDS ORDERED: LEVOFLOXACIN INJ 750 MG in PREMIX 1 EACH IV SCH (02:00)
[2020-02-02] MEDS: ONDANSETRON 4 MG/2 ML VIAL IV PRN ×3 (02:45→23:25)
[2020-02-02] MEDS: HEPARIN 5,000 UNIT/1 ML VIAL SUBCUT SCH ×3 (02:50→17:11)
[2020-02-02] MEDS: GABAPENTIN 100 MG CAPSULE PO SCH ×3 (02:51→22:04)
[2020-02-02] MEDS: cloNIDine 0.1 MG TABLET PO SCH ×3 (02:51→22:00)
[2020-02-02] MEDS: METOCLOPRAMIDE 5 MG TABLET PO SCH ×4 (02:51→17:10)
[2020-02-02] MEDS: carvediloL 25 MG TABLET PO SCH ×3 (02:52→16:28)
[2020-02-02] MEDS: INSULIN GLARGINE 100 UNIT/ML SUBCUT SCH ×2 (02:52→22:04)
[2020-02-02 06:37] LABS: Basophils % 0.2 % (0.0-0.8); Eosinophils # 0.2 10*3/uL (0.0-0.87); Eosinophils % 1.6 % (0.00-10.9); Hematocrit 30.1 VOL% (35.7-47.0); Hemoglobin 8.8 GM/DL (12.0-16.0); Immature Granulocytes % 0.5 %; Immature Granulocytes Absolute 0.08 #; Lymphocytes # 1.3 10*3/uL (1.4-4.0); Lymphocytes % 8.8 % (21.3-54.2); Mean Corpuscular HGB Conc 29.2 GM/DL (32-36); Mean Corpuscular Volume 102.7 FL (87-102); Mean Platelet Volume 10.1 FL (9.6-12.0); Monocytes % 6.6 % (1.7-12.7); Neutrophils % 82.3 % (38.7-73.9); Platelet Count 228 T/CUMM (130-400); Red Blood Count 2.93 MC/CUMM (3.8-5.5); Red Cell Distribution Width 15.2 % (9.3-17.3); White Blood Count 15.1 T/CUMM (4-12)
[2020-02-02 07:01] LABS: Osmolality,Calculated 272.2 MOS/KG (273-304)
[2020-02-02] MEDS ORDERED: LACTOBACILLUS ACIDOPHILUS/BULGARICUS CHEW TABLET PO SCH (09:00)
[2020-02-02] MEDS ORDERED: ZINC SULFATE 220 MG CAPSULE PO SCH (09:00)
[2020-02-02] MEDS ORDERED: HYDROXYCHLOROQUINE 200 MG TABLET PO SCH (09:00)
[2020-02-02] MEDS: PANTOPRAZOLE 40 MG TABLET PO SCH (09:30)
[2020-02-02] MEDS: ACETAMINOPHEN 325 MG TABLET PO PRN (09:30)
[2020-02-02] MEDS: FLUCONAZOLE 100 MG TABLET PO SCH (09:30)
[2020-02-02] MEDS: CLORAZEPATE 7.5 MG TABLET PO PRN ×2 (09:30→22:02)
[2020-02-02] MEDS: ALBUTEROL INHALER 18 GM INH SCH ×3 (09:30→23:24)
[2020-02-02] MEDS: INSULIN LISPRO 100 UNIT/ML SUBCUT SCH ×4 (11:29→22:05)
[2020-02-02] MEDS: BIOTIN KERATIN PO SCH (11:30)
[2020-02-02] MEDS: FATTY ACIDS PO SCH (11:31)
[2020-02-02] MEDS: Ferric Citrate [Auryxia] 210 MG PO SCH ×4 (11:31→22:05)
[2020-02-02] MEDS: OMEGA PO SCH (11:31)
[2020-02-02] MEDS: PROMETHAZINE 25 MG/1 ML VIAL IM PRN (17:10)
[2020-02-02] MEDS: ACIDOPHILUS PO SCH (22:03)
[2020-02-03] MEDS: PROMETHAZINE 25 MG/1 ML VIAL IM PRN ×2 (00:50→09:20)
[2020-02-03] MEDS: METOCLOPRAMIDE 5 MG TABLET PO SCH ×4 (00:50→17:13)
[2020-02-03] MEDS: HEPARIN 5,000 UNIT/1 ML VIAL SUBCUT SCH ×3 (01:17→17:13)
[2020-02-03 06:34] LABS: Basophils % 0.3 % (0.0-0.8); Eosinophils # 0.4 10*3/uL (0.0-0.87); Eosinophils % 4.2 % (0.00-10.9); Hematocrit 28.7 VOL% (35.7-47.0); Hemoglobin 8.5 GM/DL (12.0-16.0); Immature Granulocytes % 0.5 %; Immature Granulocytes Absolute 0.05 #; Lymphocytes # 1.2 10*3/uL (1.4-4.0); Lymphocytes % 11.6 % (21.3-54.2); Mean Corpuscular HGB Conc 29.6 GM/DL (32-36); Mean Corpuscular Volume 101.1 FL (87-102); Mean Platelet Volume 10.6 FL (9.6-12.0); Monocytes % 8.4 % (1.7-12.7); Platelet Count 199 T/CUMM (130-400); Red Blood Count 2.84 MC/CUMM (3.8-5.5); Red Cell Distribution Width 15.2 % (9.3-17.3); White Blood Count 10.6 T/CUMM (4-12)
[2020-02-03 06:57] LABS: Calcium 8.7 MG/DL (8.5-10.1); Osmolality,Calculated 273.2 MOS/KG (273-304)
[2020-02-03] MEDS: ALBUTEROL INHALER 18 GM INH SCH ×2 (07:04→15:20)
[2020-02-03] MEDS: OMEGA PO SCH (09:00)
[2020-02-03] MEDS: cloNIDine 0.1 MG TABLET PO SCH ×2 (09:00→21:39)
[2020-02-03] MEDS: FATTY ACIDS PO SCH (09:00)
[2020-02-03] MEDS: FLUCONAZOLE 100 MG TABLET PO SCH (09:00)
[2020-02-03] MEDS: INSULIN LISPRO 100 UNIT/ML SUBCUT SCH ×4 (09:00→22:11)
[2020-02-03] MEDS: carvediloL 25 MG TABLET PO SCH ×2 (09:00→16:15)
[2020-02-03] MEDS: PANTOPRAZOLE 40 MG TABLET PO SCH (09:00)
[2020-02-03] MEDS ORDERED: HYDROXYCHLOROQUINE 200 MG TABLET PO SCH (09:00)
[2020-02-03] MEDS: ERGOCALCIFEROL 50,000 UNIT CAPSULE PO SCH (09:00)
[2020-02-03] MEDS: GABAPENTIN 100 MG CAPSULE PO SCH ×2 (09:00→21:39)
[2020-02-03] MEDS: ONDANSETRON 4 MG/2 ML VIAL IV PRN ×2 (11:20→21:50)
[2020-02-03] MEDS ORDERED: GENTAMICIN INJ 100 MG in PREMIX 1 EACH IV PRN (12:49)
[2020-02-03] MEDS ORDERED: VANCOMYCIN INJ 1,000 MG in SODIUM CHLORIDE 0.9% 250 ML IV PRN (12:52)
[2020-02-03] MEDS: Ferric Citrate [Auryxia] 210 MG PO SCH ×3 (15:10→21:39)
[2020-02-03] MEDS: ACIDOPHILUS PO SCH ×2 (15:10→21:39)
[2020-02-03] MEDS: BIOTIN KERATIN PO SCH (15:10)
[2020-02-03] MEDS: LOPERAMIDE 2 MG CAPSULE PO PRN (15:20)
[2020-02-03] MEDS ORDERED: GENTAMICIN INJ 100 MG in PREMIX 1 EACH IV ONE (17:00)
[2020-02-03] MEDS ORDERED: VANCOMYCIN INJ 1,000 MG in SODIUM CHLORIDE 0.9% 250 ML IV ONE (18:00)
[2020-02-03] MEDS: INSULIN GLARGINE 100 UNIT/ML SUBCUT SCH (21:39)
[2020-02-03] MEDS: CLORAZEPATE 7.5 MG TABLET PO PRN (21:50)
[2020-02-04] MEDS: HEPARIN 5,000 UNIT/1 ML VIAL SUBCUT SCH ×3 (00:45→17:03)
[2020-02-04] MEDS: METOCLOPRAMIDE 5 MG TABLET PO SCH ×4 (00:53→21:41)
[2020-02-04] MEDS: ALBUTEROL INHALER 18 GM INH SCH ×4 (00:54→20:40)
[2020-02-04] MEDS: LEVOFLOXACIN INJ 500 MG in PREMIX 1 EACH IV SCH (03:05)
[2020-02-04 07:28] LABS: Calcium 8.6 MG/DL (8.5-10.1); Osmolality,Calculated 274.1 MOS/KG (273-304)
[2020-02-04 08:03] LABS: Basophils % 0.4 % (0.0-0.8); Eosinophils # 0.3 10*3/uL (0.0-0.87); Eosinophils % 4.2 % (0.00-10.9); Hematocrit 29.7 VOL% (35.7-47.0); Hemoglobin 8.7 GM/DL (12.0-16.0); Immature Granulocytes % 0.4 %; Immature Granulocytes Absolute 0.03 #; Lymphocytes # 1.4 10*3/uL (1.4-4.0); Lymphocytes % 17.4 % (21.3-54.2); Mean Corpuscular HGB Conc 29.3 GM/DL (32-36); Mean Corpuscular Volume 102.4 FL (87-102); Mean Platelet Volume 10.8 FL (9.6-12.0); Monocytes % 7.7 % (1.7-12.7); Neutrophils % 69.9 % (38.7-73.9); Platelet Count 207 T/CUMM (130-400); Red Cell Distribution Width 15.2 % (9.3-17.3); White Blood Count 7.8 T/CUMM (4-12)
[2020-02-04] MEDS: cloNIDine 0.1 MG TABLET PO SCH (08:52)
[2020-02-04] MEDS: FLUCONAZOLE 100 MG TABLET PO SCH (08:52)
[2020-02-04] MEDS: carvediloL 25 MG TABLET PO SCH ×2 (08:52→17:03)
[2020-02-04] MEDS: Ferric Citrate [Auryxia] 210 MG PO SCH ×3 (08:52→20:42)
[2020-02-04] MEDS: BIOTIN KERATIN PO SCH (08:52)
[2020-02-04] MEDS: GABAPENTIN 100 MG CAPSULE PO SCH ×2 (08:53→20:42)
[2020-02-04] MEDS: PANTOPRAZOLE 40 MG TABLET PO SCH (08:53)
[2020-02-04] MEDS: ACIDOPHILUS PO SCH ×2 (08:53→20:42)
[2020-02-04] MEDS: ONDANSETRON 4 MG/2 ML VIAL IV PRN ×2 (08:53→20:44)
[2020-02-04] MEDS: INSULIN LISPRO 100 UNIT/ML SUBCUT SCH ×3 (09:32→17:37)
[2020-02-04] MEDS: OMEGA PO SCH (09:34)
[2020-02-04] MEDS: FATTY ACIDS PO SCH (09:34)
[2020-02-04] MEDS: PROMETHAZINE 25 MG/1 ML VIAL IM PRN ×2 (11:16→17:05)
[2020-02-04 12:41] LABS: Hypochromasia 1+; Platelet Estimate Adequate
[2020-02-04] MEDS: ACETAMINOPHEN/CODEINE 300-30 MG TABLET PO PRN (21:42)
[2020-02-05] MEDS: cloNIDine 0.1 MG TABLET PO SCH ×3 (00:13→21:31)
[2020-02-05] MEDS: INSULIN LISPRO 100 UNIT/ML SUBCUT SCH ×5 (00:14→21:31)
[2020-02-05] MEDS: INSULIN GLARGINE 100 UNIT/ML SUBCUT SCH ×2 (00:14→21:42)
[2020-02-05] MEDS: PROMETHAZINE 25 MG/1 ML VIAL IM PRN ×3 (02:23→21:31)
[2020-02-05] MEDS: HEPARIN 5,000 UNIT/1 ML VIAL SUBCUT SCH ×3 (02:25→16:42)
[2020-02-05] MEDS: ACETAMINOPHEN 325 MG TABLET PO PRN (06:04)
[2020-02-05] MEDS: ALBUTEROL INHALER 18 GM INH SCH ×3 (06:04→23:40)
[2020-02-05 07:21] LABS: Calcium 8.5 MG/DL (8.5-10.1); Osmolality,Calculated 275.4 MOS/KG (273-304)
[2020-02-05] MEDS: METOCLOPRAMIDE 5 MG TABLET PO SCH ×4 (08:55→21:31)
[2020-02-05] MEDS: Ferric Citrate [Auryxia] 210 MG PO SCH ×3 (08:55→21:31)
[2020-02-05] MEDS: FLUCONAZOLE 100 MG TABLET PO SCH (08:55)
[2020-02-05] MEDS: BIOTIN KERATIN PO SCH (08:55)
[2020-02-05] MEDS: carvediloL 25 MG TABLET PO SCH ×2 (08:55→16:42)
[2020-02-05] MEDS: OMEGA 3 ACID ETHYL ESTERS 1 GM CAPSULE PO SCH (08:55)
[2020-02-05] MEDS: PANTOPRAZOLE 40 MG TABLET PO SCH (08:56)
[2020-02-05] MEDS: ACIDOPHILUS PO SCH ×2 (08:56→21:31)
[2020-02-05] MEDS: GABAPENTIN 100 MG CAPSULE PO SCH ×2 (08:56→21:31)
[2020-02-05 10:54] LABS: Basophils % 0.4 % (0.0-0.8); Eosinophils # 0.3 10*3/uL (0.0-0.87); Eosinophils % 4.3 % (0.00-10.9); Immature Granulocytes % 0.3 %; Immature Granulocytes Absolute 0.02 #; Lymphocytes # 1.3 10*3/uL (1.4-4.0); Lymphocytes % 17.5 % (21.3-54.2); Mean Corpuscular Volume 103.7 FL (87-102); Mean Platelet Volume 10.5 FL (9.6-12.0); Monocytes % 9.4 % (1.7-12.7); Neutrophils % 68.1 % (38.7-73.9); Platelet Count 223 T/CUMM (130-400); Red Blood Count 2.99 MC/CUMM (3.8-5.5); Red Cell Distribution Width 15.3 % (9.3-17.3); White Blood Count 7.2 T/CUMM (4-12)
[2020-02-05 13:30] LABS: Platelet Estimate Normal
[2020-02-05] MEDS: LOPERAMIDE 2 MG CAPSULE PO PRN (21:31)
[2020-02-05] MEDS: CLORAZEPATE 7.5 MG TABLET PO PRN (21:31)
[2020-02-06] MEDS: HEPARIN 5,000 UNIT/1 ML VIAL SUBCUT SCH ×3 (02:26→16:58)
[2020-02-06] MEDS: LEVOFLOXACIN INJ 500 MG in PREMIX 1 EACH IV SCH (02:26)
[2020-02-06 05:54] LABS: Basophils % 0.4 % (0.0-0.8); Eosinophils # 0.3 10*3/uL (0.0-0.87); Eosinophils % 3.8 % (0.00-10.9); Hematocrit 29.3 VOL% (35.7-47.0); Hemoglobin 8.6 GM/DL (12.0-16.0); Immature Granulocytes % 0.6 %; Immature Granulocytes Absolute 0.04 #; Lymphocytes # 1.2 10*3/uL (1.4-4.0); Lymphocytes % 17.5 % (21.3-54.2); Mean Corpuscular HGB Conc 29.4 GM/DL (32-36); Mean Corpuscular Volume 101.7 FL (87-102); Mean Platelet Volume 10.1 FL (9.6-12.0); Monocytes % 7.5 % (1.7-12.7); Neutrophils % 70.2 % (38.7-73.9); Platelet Count 221 T/CUMM (130-400); Red Blood Count 2.88 MC/CUMM (3.8-5.5); White Blood Count 6.9 T/CUMM (4-12)
[2020-02-06 06:26] LABS: Calcium 8.8 MG/DL (8.5-10.1); Osmolality,Calculated 276.4 MOS/KG (273-304)
[2020-02-06] MEDS: ALBUTEROL INHALER 18 GM INH SCH ×3 (06:46→22:49)
[2020-02-06] MEDS: INSULIN LISPRO 100 UNIT/ML SUBCUT SCH ×4 (08:44→20:25)
[2020-02-06] MEDS: LOPERAMIDE 2 MG CAPSULE PO PRN (08:45)
[2020-02-06] MEDS: OMEGA 3 ACID ETHYL ESTERS 1 GM CAPSULE PO SCH (08:45)
[2020-02-06] MEDS: ERGOCALCIFEROL 50,000 UNIT CAPSULE PO SCH (08:45)
[2020-02-06] MEDS: GABAPENTIN 100 MG CAPSULE PO SCH ×2 (08:45→20:25)
[2020-02-06] MEDS: PANTOPRAZOLE 40 MG TABLET PO SCH (08:45)
[2020-02-06] MEDS: METOCLOPRAMIDE 5 MG TABLET PO SCH ×4 (08:46→20:25)
[2020-02-06] MEDS: Ferric Citrate [Auryxia] 210 MG PO SCH ×3 (08:46→20:25)
[2020-02-06] MEDS: BIOTIN KERATIN PO SCH (08:46)
[2020-02-06] MEDS: cloNIDine 0.1 MG TABLET PO SCH ×2 (08:47→20:25)
[2020-02-06] MEDS: ACIDOPHILUS PO SCH ×2 (08:47→20:25)
[2020-02-06] MEDS: carvediloL 25 MG TABLET PO SCH ×2 (08:47→16:58)
[2020-02-06] MEDS: CLORAZEPATE 7.5 MG TABLET PO PRN (15:26)
[2020-02-06] MEDS: PROMETHAZINE 25 MG/1 ML VIAL IM PRN ×2 (15:27→20:30)
[2020-02-06] MEDS ORDERED: GENTAMICIN INJ 100 MG in PREMIX 1 EACH IV ONE (17:00)
[2020-02-06] MEDS: INSULIN GLARGINE 100 UNIT/ML SUBCUT SCH (20:25)
[2020-02-06] MEDS: ACETAMINOPHEN/CODEINE 300-30 MG TABLET PO PRN (20:40)
[2020-02-07] MEDS: HEPARIN 5,000 UNIT/1 ML VIAL SUBCUT SCH ×3 (00:55→17:40)
[2020-02-07] MEDS: ALBUTEROL INHALER 18 GM INH SCH ×2 (06:07→15:50)
[2020-02-07] MEDS: OMEGA 3 ACID ETHYL ESTERS 1 GM CAPSULE PO SCH (08:44)
[2020-02-07] MEDS: INSULIN LISPRO 100 UNIT/ML SUBCUT SCH ×4 (08:44→20:50)
[2020-02-07] MEDS: GABAPENTIN 100 MG CAPSULE PO SCH ×2 (08:45→20:50)
[2020-02-07] MEDS: METOCLOPRAMIDE 5 MG TABLET PO SCH ×4 (08:45→20:50)
[2020-02-07] MEDS: PANTOPRAZOLE 40 MG TABLET PO SCH (08:45)
[2020-02-07] MEDS: Ferric Citrate [Auryxia] 210 MG PO SCH ×3 (08:46→20:50)
[2020-02-07] MEDS: carvediloL 25 MG TABLET PO SCH ×2 (08:46→17:18)
[2020-02-07] MEDS: BIOTIN KERATIN PO SCH (08:46)
[2020-02-07] MEDS: ACIDOPHILUS PO SCH ×2 (08:46→20:50)
[2020-02-07] MEDS: cloNIDine 0.1 MG TABLET PO SCH ×2 (08:46→20:50)
[2020-02-07] MEDS ORDERED: VANCOMYCIN INJ 1,000 MG in SODIUM CHLORIDE 0.9% 250 ML IV PRN (08:51)
[2020-02-07] MEDS: ACETAMINOPHEN/CODEINE 300-30 MG TABLET PO PRN ×2 (11:21→20:50)
[2020-02-07] MEDS: PROMETHAZINE 25 MG/1 ML VIAL IM PRN ×2 (11:22→20:50)
[2020-02-07] MEDS ORDERED: VANCOMYCIN INJ 1,000 MG in SODIUM CHLORIDE 0.9% 250 ML IV ONE (12:00)
[2020-02-07] MEDS: INSULIN GLARGINE 100 UNIT/ML SUBCUT SCH (20:50)
[2020-02-08] MEDS: ALBUTEROL INHALER 18 GM INH SCH ×4 (00:08→23:55)
[2020-02-08] MEDS: HEPARIN 5,000 UNIT/1 ML VIAL SUBCUT SCH ×3 (02:21→17:15)
[2020-02-08] MEDS: ONDANSETRON 4 MG/2 ML VIAL IV PRN (06:05)
[2020-02-08] MEDS: ACIDOPHILUS PO SCH ×2 (08:40→23:05)
[2020-02-08] MEDS: BIOTIN KERATIN PO SCH (08:40)
[2020-02-08] MEDS: Ferric Citrate [Auryxia] 210 MG PO SCH ×3 (08:40→20:55)
[2020-02-08] MEDS: OMEGA 3 ACID ETHYL ESTERS 1 GM CAPSULE PO SCH (08:40)
[2020-02-08] MEDS: PANTOPRAZOLE 40 MG TABLET PO SCH (08:40)
[2020-02-08] MEDS: INSULIN LISPRO 100 UNIT/ML SUBCUT SCH ×4 (08:40→20:55)
[2020-02-08] MEDS: CLORAZEPATE 7.5 MG TABLET PO PRN ×2 (08:40→21:00)
[2020-02-08] MEDS: METOCLOPRAMIDE 5 MG TABLET PO SCH ×4 (08:40→20:55)
[2020-02-08] MEDS: carvediloL 25 MG TABLET PO SCH ×2 (08:40→17:15)
[2020-02-08] MEDS: GABAPENTIN 100 MG CAPSULE PO SCH ×2 (08:40→20:55)
[2020-02-08] MEDS: ACETAMINOPHEN/CODEINE 300-30 MG TABLET PO PRN ×2 (08:40→21:00)
[2020-02-08] MEDS: cloNIDine 0.1 MG TABLET PO SCH ×2 (09:36→20:55)
[2020-02-08] MEDS: LEVOFLOXACIN INJ 500 MG in PREMIX 1 EACH IV SCH (14:55)
[2020-02-08] MEDS ORDERED: GENTAMICIN INJ 100 MG in PREMIX 1 EACH IV ONE (17:00)
[2020-02-08] MEDS ORDERED: VANCOMYCIN INJ 1,000 MG in SODIUM CHLORIDE 0.9% 250 ML IV ONE (18:00)
[2020-02-08] MEDS: INSULIN GLARGINE 100 UNIT/ML SUBCUT SCH (20:55)
[2020-02-08] MEDS: PROMETHAZINE 25 MG/1 ML VIAL IM PRN (21:00)
[2020-02-08] MEDS: LOPERAMIDE 2 MG CAPSULE PO PRN (21:00)
[2020-02-09] MEDS: HEPARIN 5,000 UNIT/1 ML VIAL SUBCUT SCH ×2 (03:09→09:00)
[2020-02-09] MEDS: ALBUTEROL INHALER 18 GM INH SCH (06:46)
[2020-02-09] MEDS: INSULIN LISPRO 100 UNIT/ML SUBCUT SCH ×2 (08:17→11:43)
[2020-02-09] MEDS: METOCLOPRAMIDE 5 MG TABLET PO SCH ×2 (08:57→11:44)
[2020-02-09] MEDS: PANTOPRAZOLE 40 MG TABLET PO SCH (08:57)
[2020-02-09] MEDS: carvediloL 25 MG TABLET PO SCH (08:58)
[2020-02-09] MEDS: GABAPENTIN 100 MG CAPSULE PO SCH (08:58)
[2020-02-09] MEDS: cloNIDine 0.1 MG TABLET PO SCH (08:58)
[2020-02-09] MEDS: BIOTIN KERATIN PO SCH (08:59)
[2020-02-09] MEDS: ACIDOPHILUS PO SCH (08:59)
[2020-02-09] MEDS: OMEGA 3 ACID ETHYL ESTERS 1 GM CAPSULE PO SCH (08:59)
[2020-02-09] MEDS: ONDANSETRON 4 MG/2 ML VIAL IV PRN (09:00)
[2020-02-09] MEDS: Ferric Citrate [Auryxia] 210 MG PO SCH (09:00)
[2020-02-09] MEDS: PROMETHAZINE 25 MG/1 ML VIAL IM PRN (10:22)
[2020-02-09 12:17] VITALS: BP 129/73
== END 2020-02-09 14:30 | disposition home health service (06) | DRG 871 ==
LOC: EDUNIT# → EDBD → N.ED 18:36 → SUATTDRO 21:53 → N.EDINP 21:53 → N.2E 23:31
PROVIDERS: ADMIT Family Medicine; ATTEND Family Medicine

== ENCOUNTER 2021-05-10 11:04 | Inpatient (IN) ==
[2021-05-10 12:23] LABS: Basophils % 0.3 % (0.0-0.8); Eosinophils # 0.1 10*3/uL (0.0-0.87); Eosinophils % 2.1 % (0.00-10.9); Hemoglobin 10.3 GM/DL (12.0-16.0); Immature Granulocytes % 0.5 %; Immature Granulocytes Absolute 0.03 #; Lymphocytes # 0.9 10*3/uL (1.4-4.0); Lymphocytes % 13.1 % (21.3-54.2); Mean Corpuscular HGB Conc 30.3 GM/DL (32-36); Mean Corpuscular Volume 99.1 FL (87-102); Monocytes % 6.6 % (1.7-12.7); Neutrophils % 77.4 % (38.7-73.9); Platelet Count 199 T/CUMM (130-400); Red Blood Count 3.43 MC/CUMM (3.8-5.5); Red Cell Distribution Width 13.6 % (9.3-17.3); White Blood Count 6.6 T/CUMM (4-12)
[2021-05-10] MEDS ORDERED: HYDROmorphone 2 MG/1 ML VIAL IV STA (12:47)
[2021-05-10] MEDS ORDERED: ONDANSETRON 4 MG/2 ML VIAL IV STA (12:48)
[2021-05-10 12:50] LABS: Hypochromasia 1+; Lymphocytes 15 % (20-55); Microcytosis 1+; Platelet Estimate Adequate; Segmented Neutrophils 77 % (50-85); Total Cells Counted 100
[2021-05-10 12:54] LABS: Calcium 9.1 MG/DL (8.5-10.1); Osmolality,Calculated 283.1 MOS/KG (273-304); Potassium 4.5 MMOL/L (3.5-5.1)
[2021-05-10] MEDS ORDERED: GLUCAGON 1 MG VIAL IM PRN (14:09)
[2021-05-10] MEDS ORDERED: DOCUSATE SODIUM 100 MG CAPSULE PO PRN (14:09)
[2021-05-10] MEDS ORDERED: ALUMINUM/MAGNES/SIMETH MAX STR 30 ML UDCUP PO PRN (14:09)
[2021-05-10] MEDS ORDERED: DEXTROSE 50% 25 GM/50 ML VIAL IV PRN (14:09)
[2021-05-10] MEDS ORDERED: ALBUTEROL 2.5 MG/3 ML NEB RESP TX PRN (14:09)
[2021-05-10] MEDS ORDERED: LACTULOSE 20 GM/30 ML UDCUP PO PRN (14:09)
[2021-05-10] MEDS ORDERED: NALOXONE 0.4 MG/ML VIAL IV PRN (14:17)
[2021-05-10] MEDS: MORPHINE 2 MG/1 ML SYRINGE IV PRN ×2 (15:29→19:21)
[2021-05-10] MEDS: INSULIN LISPRO 100 UNIT/ML SUBCUT SCH ×2 (16:09→20:49)
[2021-05-10] MEDS ORDERED: VANCOMYCIN INJ 2,500 MG in SODIUM CHLORIDE 0.9% 500 ML IV ONE (17:00)
[2021-05-10] MEDS ORDERED: SODIUM CHLORIDE 0.9% 1,000 ML IV PRN (18:21)
[2021-05-10] MEDS: HYDROmorphone 2 MG/1 ML VIAL IV PRN ×2 (21:24→23:42)
[2021-05-11] MEDS: MORPHINE 2 MG/1 ML SYRINGE IV PRN (04:05)
[2021-05-11 04:27] LABS: Basophils % 0.3 % (0.0-0.8); Eosinophils # 0.1 10*3/uL (0.0-0.87); Eosinophils % 1.8 % (0.00-10.9); Hematocrit 34.4 VOL% (35.7-47.0); Hemoglobin 10.3 GM/DL (12.0-16.0); Immature Granulocytes % 0.4 %; Immature Granulocytes Absolute 0.03 #; Lymphocytes # 0.8 10*3/uL (1.4-4.0); Mean Corpuscular HGB Conc 29.9 GM/DL (32-36); Mean Corpuscular Volume 101.2 FL (87-102); Mean Platelet Volume 10.2 FL (9.6-12.0); Monocytes % 6.8 % (1.7-12.7); Neutrophils % 78.7 % (38.7-73.9); Platelet Count 192 T/CUMM (130-400); Red Cell Distribution Width 13.5 % (9.3-17.3); White Blood Count 6.7 T/CUMM (4-12)
[2021-05-11 05:04] LABS: Calcium 8.8 MG/DL (8.5-10.1); Osmolality,Calculated 289.8 MOS/KG (273-304); Potassium 4.9 MMOL/L (3.5-5.1); Risk Ratio 3.8; Thyroid Stimulating Hormone 6.21 uIU/ml (0.358-3.74); VLDL Cholesterol 21.2 MG/DL
[2021-05-11] MEDS: HYDROmorphone 2 MG/1 ML VIAL IV PRN ×6 (06:29→22:36)
[2021-05-11] MEDS ORDERED: TISSUE ADHESIVE 1 EACH APPLICATOR TOP ONE (06:40)
[2021-05-11] MEDS ORDERED: BUPIVACAINE MPF 0.25% 30 ML VIAL ONE (06:40)
[2021-05-11] MEDS ORDERED: LIDOCAINE 1%/EPI INJ 20 ML VIAL ONE (06:40)
[2021-05-11] MEDS ORDERED: HEPARIN 5,000 UNIT/1 ML VIAL ONE (06:40)
[2021-05-11] MEDS: PANTOPRAZOLE 40 MG TABLET PO SCH (08:08)
[2021-05-11] MEDS: INSULIN LISPRO 100 UNIT/ML SUBCUT SCH ×4 (08:09→20:39)
[2021-05-11 08:14] LABS: Free T4 (Free Thyroxine) 0.99 NG/DL (0.76-1.46)
[2021-05-11] MEDS: GABAPENTIN 100 MG CAPSULE PO SCH ×2 (08:54→22:00)
[2021-05-11] MEDS ORDERED: carvediloL 25 MG TABLET PO SCH (09:00)
[2021-05-11] MEDS ORDERED: ROCURONIUM 50 MG/5 ML VIAL IV ONE (09:37)
[2021-05-11] MEDS ORDERED: SUCCINYLCHOLINE 200 MG/10 ML VIAL ONE (09:37)
[2021-05-11] MEDS ORDERED: ETOMIDATE 40 MG/20 ML VIAL IV ONE (09:37)
[2021-05-11] MEDS ORDERED: LIDOCAINE 2% 5 ML VIAL ONE (09:37)
[2021-05-11] MEDS ORDERED: MIDAZOLAM 2 MG/2 ML VIAL ONE (09:37)
[2021-05-11] MEDS ORDERED: METOCLOPRAMIDE 10 MG/2 ML VIAL ONE (09:43)
[2021-05-11] MEDS ORDERED: CLINDAMYCIN INJ 900 MG/50 ML PREMIX IV ONE (10:04)
[2021-05-11] MEDS ORDERED: PHENYLEPHRINE 1 MG/10 ML SYRINGE IV ONE (10:26)
[2021-05-11] MEDS ORDERED: SODIUM CHLORIDE 0.9% 1,000 ML IV ONE (10:26)
[2021-05-11] MEDS ORDERED: CALCIUM CHLORIDE 1,000 MG/10 ML VIAL IV ONE (10:26)
[2021-05-11] MEDS ORDERED: SODIUM CHLORIDE 0.9% 500 ML IV ONE (10:26)
[2021-05-11] MEDS ORDERED: DOCUSATE SODIUM 100 MG CAPSULE PO PRN (10:36)
[2021-05-11] MEDS ORDERED: SUGAMMADEX 200 MG/2 ML VIAL IV ONE (10:38)
[2021-05-11 12:01] LABS: Hepatitis B Core IgM Quant 0.08 Index; Hepatitis B Surface Ag Quant < 0.10 Index; Hepatitis B Surface Ag Result Non-Reactive (NonReactive); Hepatitis C Virus Ab Quant 0.08 Index; Hepatitis C Virus Ab Result Non-Reactive (NonReactive)
[2021-05-11] MEDS ORDERED: HEPARIN 10,000 UNIT/10 ML VIAL IV PRN (13:08)
[2021-05-11] MEDS: Ferric Citrate [Auryxia] 210 mg iron Tablet PO SCH ×2 (14:37→21:46)
[2021-05-11] MEDS: carvediloL 25 MG TABLET PO SCH (17:40)
[2021-05-11] MEDS ORDERED: VANCOMYCIN INJ 1,000 MG in SODIUM CHLORIDE 0.9% 250 ML IV ONE (18:00)
[2021-05-11] MEDS: ONDANSETRON 4 MG/2 ML VIAL IV PRN (21:59)
[2021-05-12] MEDS: HYDROmorphone 2 MG/1 ML VIAL IV PRN ×6 (01:49→21:54)
[2021-05-12 06:49] LABS: Basophils % 0.2 % (0.0-0.8); Eosinophils % 0.1 % (0.00-10.9); Hematocrit 35.6 VOL% (35.7-47.0); Hemoglobin 10.7 GM/DL (12.0-16.0); Immature Granulocytes % 1.2 %; Immature Granulocytes Absolute 0.15 #; Lymphocytes # 1.1 10*3/uL (1.4-4.0); Lymphocytes % 8.7 % (21.3-54.2); Mean Corpuscular HGB Conc 30.1 GM/DL (32-36); Mean Corpuscular Volume 103.8 FL (87-102); Mean Platelet Volume 10.3 FL (9.6-12.0); Monocytes % 8.3 % (1.7-12.7); Neutrophils % 81.5 % (38.7-73.9); Platelet Count 162 T/CUMM (130-400); Red Blood Count 3.43 MC/CUMM (3.8-5.5); Red Cell Distribution Width 13.8 % (9.3-17.3); White Blood Count 12.2 T/CUMM (4-12)
[2021-05-12 07:08] LABS: Calcium 9.1 MG/DL (8.5-10.1); Potassium 5.6 MMOL/L (3.5-5.1)
[2021-05-12] MEDS: INSULIN LISPRO 100 UNIT/ML SUBCUT SCH ×3 (08:05→15:52)
[2021-05-12] MEDS: carvediloL 25 MG TABLET PO SCH (08:05)
[2021-05-12] MEDS ORDERED: SODIUM POLYSTYRENE SULFATE 15 GM/60 ML BOTTLE PO STA (08:06)
[2021-05-12 08:40] LABS: Albumin 3.1 G/DL (3.4-5.0); Bilirubin,Direct 0.63 MG/DL (0.0-0.20); Bilirubin,Indirect 0.4 MG/DL (0.0-1.0); Total Protein 8.6 G/DL (6.4-8.2)
[2021-05-12] MEDS ORDERED: SODIUM CHLORIDE 0.9% 500 ML IV ONE (08:50)
[2021-05-12] MEDS: Ferric Citrate [Auryxia] 210 mg iron Tablet PO SCH ×2 (09:25→15:47)
[2021-05-12] MEDS: PANTOPRAZOLE 40 MG TABLET PO SCH (10:11)
[2021-05-12] MEDS: GABAPENTIN 100 MG CAPSULE PO SCH ×2 (14:07→20:31)
[2021-05-13] MEDS: Ferric Citrate [Auryxia] 210 mg iron Tablet PO SCH ×4 (02:59→20:25)
[2021-05-13] MEDS: INSULIN LISPRO 100 UNIT/ML SUBCUT SCH ×5 (02:59→20:25)
[2021-05-13] MEDS: HYDROmorphone 2 MG/1 ML VIAL IV PRN ×5 (05:23→23:20)
[2021-05-13 06:27] LABS: Basophils % 0.4 % (0.0-0.8); Eosinophils # 0.1 10*3/uL (0.0-0.87); Eosinophils % 1.3 % (0.00-10.9); Hematocrit 33.5 VOL% (35.7-47.0); Hemoglobin 10.5 GM/DL (12.0-16.0); Immature Granulocytes % 0.8 %; Immature Granulocytes Absolute 0.06 #; Lymphocytes % 13.2 % (21.3-54.2); Mean Corpuscular HGB Conc 31.3 GM/DL (32-36); Mean Corpuscular Volume 100.6 FL (87-102); Mean Platelet Volume 10.8 FL (9.6-12.0); Monocytes % 7.4 % (1.7-12.7); NRBC # 0.03 10*3/uL; Neutrophils % 76.9 % (38.7-73.9); Platelet Count 147 T/CUMM (130-400); Red Blood Count 3.33 MC/CUMM (3.8-5.5); Red Cell Distribution Width 13.6 % (9.3-17.3); White Blood Count 7.6 T/CUMM (4-12)
[2021-05-13 06:47] LABS: Calcium 9.1 MG/DL (8.5-10.1); Osmolality,Calculated 283.4 MOS/KG (273-304)
[2021-05-13] MEDS: ERGOCALCIFEROL 50,000 UNIT CAPSULE PO SCH (09:50)
[2021-05-13] MEDS: PANTOPRAZOLE 40 MG TABLET PO SCH (09:50)
[2021-05-13] MEDS: GABAPENTIN 100 MG CAPSULE PO SCH ×2 (09:51→20:25)
[2021-05-13] MEDS: ONDANSETRON 4 MG/2 ML VIAL IV PRN (09:52)
[2021-05-13] MEDS ORDERED: VANCOMYCIN INJ 1,000 MG in SODIUM CHLORIDE 0.9% 250 ML IV PRN (17:00)
[2021-05-14 05:25] LABS: Basophils % 0.3 % (0.0-0.8); Eosinophils # 0.2 10*3/uL (0.0-0.87); Eosinophils % 1.9 % (0.00-10.9); Hemoglobin 9.5 GM/DL (12.0-16.0); Immature Granulocytes Absolute 0.09 #; Lymphocytes # 1.2 10*3/uL (1.4-4.0); Lymphocytes % 13.2 % (21.3-54.2); Mean Corpuscular HGB Conc 30.6 GM/DL (32-36); Mean Platelet Volume 10.9 FL (9.6-12.0); Monocytes % 7.6 % (1.7-12.7); NRBC # 0.04 10*3/uL; Platelet Count 175 T/CUMM (130-400); Red Cell Distribution Width 13.6 % (9.3-17.3); White Blood Count 8.8 T/CUMM (4-12)
[2021-05-14 05:36] LABS: Calcium 9.1 MG/DL (8.5-10.1); Osmolality,Calculated 287.5 MOS/KG (273-304); Potassium 5.3 MMOL/L (3.5-5.1)
[2021-05-14] MEDS: PANTOPRAZOLE 40 MG TABLET PO SCH (09:01)
[2021-05-14] MEDS: Ferric Citrate [Auryxia] 210 mg iron Tablet PO SCH ×3 (09:01→21:36)
[2021-05-14] MEDS: GABAPENTIN 100 MG CAPSULE PO SCH ×2 (09:01→21:36)
[2021-05-14] MEDS: INSULIN LISPRO 100 UNIT/ML SUBCUT SCH ×4 (09:01→21:36)
[2021-05-14] MEDS: HYDROmorphone 2 MG/1 ML VIAL IV PRN ×2 (11:29→19:37)
[2021-05-14] MEDS: ONDANSETRON 4 MG/2 ML VIAL IV PRN (13:40)
[2021-05-14] MEDS ORDERED: VANCOMYCIN INJ 1,000 MG in SODIUM CHLORIDE 0.9% 250 ML IV ONE (17:00)
[2021-05-14] MEDS ORDERED: INSULIN GLARGINE 100 UNIT/ML SUBCUT SCH (21:00)
[2021-05-15] MEDS: HYDROmorphone 2 MG/1 ML VIAL IV PRN ×3 (01:43→19:24)
[2021-05-15 04:41] LABS: Basophils % 0.6 % (0.0-0.8); Eosinophils # 0.2 10*3/uL (0.0-0.87); Eosinophils % 2.9 % (0.00-10.9); Hematocrit 30.3 VOL% (35.7-47.0); Hemoglobin 9.5 GM/DL (12.0-16.0); Immature Granulocytes Absolute 0.07 #; Lymphocytes % 13.8 % (21.3-54.2); Mean Corpuscular HGB Conc 31.4 GM/DL (32-36); Mean Platelet Volume 10.6 FL (9.6-12.0); Monocytes % 8.5 % (1.7-12.7); Neutrophils % 73.2 % (38.7-73.9); Platelet Count 181 T/CUMM (130-400); Red Blood Count 3.06 MC/CUMM (3.8-5.5); Red Cell Distribution Width 13.6 % (9.3-17.3); White Blood Count 7.2 T/CUMM (4-12)
[2021-05-15 05:03] LABS: Calcium 8.9 MG/DL (8.5-10.1); Osmolality,Calculated 285.2 MOS/KG (273-304); Potassium 4.5 MMOL/L (3.5-5.1)
[2021-05-15] MEDS: INSULIN LISPRO 100 UNIT/ML SUBCUT SCH ×4 (07:49→21:01)
[2021-05-15] MEDS: GABAPENTIN 100 MG CAPSULE PO SCH ×2 (08:11→20:59)
[2021-05-15] MEDS: PANTOPRAZOLE 40 MG TABLET PO SCH (08:11)
[2021-05-15] MEDS ORDERED: HYDROmorphone 2 MG/1 ML VIAL IV ONE (08:12)
[2021-05-15] MEDS: Ferric Citrate [Auryxia] 210 mg iron Tablet PO SCH ×3 (08:12→21:00)
[2021-05-15] MEDS: ONDANSETRON 4 MG/2 ML VIAL IV PRN ×3 (10:03→19:24)
[2021-05-16] MEDS: HYDROmorphone 2 MG/1 ML VIAL IV PRN ×4 (06:42→23:07)
[2021-05-16] MEDS: ONDANSETRON 4 MG/2 ML VIAL IV PRN ×4 (06:43→23:09)
[2021-05-16] MEDS: INSULIN LISPRO 100 UNIT/ML SUBCUT SCH ×4 (08:19→20:32)
[2021-05-16] MEDS: Ferric Citrate [Auryxia] 210 mg iron Tablet PO SCH ×3 (08:19→20:33)
[2021-05-16] MEDS: GABAPENTIN 100 MG CAPSULE PO SCH ×2 (08:20→20:32)
[2021-05-16] MEDS: PANTOPRAZOLE 40 MG TABLET PO SCH (08:20)
[2021-05-16] MEDS ORDERED: HYDROmorphone 2 MG/1 ML VIAL IV ONE (14:32)
[2021-05-16] MEDS ORDERED: VANCOMYCIN INJ 1,000 MG in SODIUM CHLORIDE 0.9% 250 ML IV ONE (17:00)
[2021-05-17] MEDS: HYDROmorphone 2 MG/1 ML VIAL IV PRN ×3 (03:03→10:45)
[2021-05-17] MEDS: ONDANSETRON 4 MG/2 ML VIAL IV PRN ×2 (03:04→07:08)
[2021-05-17 06:20] LABS: Basophils % 0.6 % (0.0-0.8); Eosinophils # 0.2 10*3/uL (0.0-0.87); Eosinophils % 2.6 % (0.00-10.9); Hematocrit 33.2 VOL% (35.7-47.0); Hemoglobin 10.3 GM/DL (12.0-16.0); Immature Granulocytes % 1.1 %; Immature Granulocytes Absolute 0.07 #; Lymphocytes % 15.7 % (21.3-54.2); Mean Platelet Volume 10.2 FL (9.6-12.0); Monocytes % 8.1 % (1.7-12.7); Neutrophils % 71.9 % (38.7-73.9); Platelet Count 200 T/CUMM (130-400); Red Blood Count 3.32 MC/CUMM (3.8-5.5); Red Cell Distribution Width 14.1 % (9.3-17.3); White Blood Count 6.3 T/CUMM (4-12)
[2021-05-17 06:30] LABS: INR 1.1; PT Patient Result 12.5 SECS (10.5-12.0); Partial Thromboplastin Time 30.3 SECS (23.9-33.8)
[2021-05-17 06:39] LABS: Osmolality,Calculated 273.4 MOS/KG (273-304); Potassium 4.8 MMOL/L (3.5-5.1)
[2021-05-17] MEDS: ERGOCALCIFEROL 50,000 UNIT CAPSULE PO SCH (10:35)
[2021-05-17] MEDS: PANTOPRAZOLE 40 MG TABLET PO SCH (10:35)
[2021-05-17] MEDS: GABAPENTIN 100 MG CAPSULE PO SCH (10:35)
[2021-05-17] MEDS: Ferric Citrate [Auryxia] 210 mg iron Tablet PO SCH (10:36)
[2021-05-17] MEDS: INSULIN LISPRO 100 UNIT/ML SUBCUT SCH (10:48)
[2021-05-17 11:39] VITALS: BP 127/68
== END 2021-05-17 13:05 | disposition home or self-care (01) | DRG 252 ==
LOC: N.ED 11:04 → N.EDINP 11:04 → SUATTDRO 13:55 → N.EDINP 15:09 → N.3E 15:16 → SUATTDRO 05-11 10:30
PROVIDERS: ADMIT Internal Medicine; ATTEND Internal Medicine Geriatric Medicine
PROC: VAVDCFI (2021-05-11 09:43)